=== PATIENT | female | born 1970 | race Caucasian/White ===

== ENCOUNTER 2019-01-31 12:33 | Emergency (ER) | payer OTHER ==
[~2019-01-31] VITALS: Ht 157.5 cm; Wt 56.1 kg
[2019-01-31 12:51] VITALS: BP 165/121
[2019-01-31] MEDS ORDERED: AMOX-580 PO (13:42)
[2019-01-31] MEDS ORDERED: HYDR-4353 PO (13:42)
[2019-01-31] MEDS ORDERED: CHLO473M3 PO (13:42)
== END 2019-01-31 13:52 | disposition home or self-care (01) ==
LOC: ER 12:33
DX: K04.7 Periapical abscess without sinus (principal); F17.200 Nicotine dependence, unspecified, uncomplicated; Z79.899 Other long term (current) drug therapy
CPT/HCPCS: 99283